=== PATIENT | male | born 1995 | race Caucasian/White ===

== ENCOUNTER 2018-06-26 16:32 | Emergency (ER) | payer OTHER ==
[2018-06-26] MEDS ORDERED: Diphtheria,Pertussis(Acell),Tetanus Vaccine 0.5 ML SDV IM ONE (16:45)
[2018-06-26] MEDS ORDERED: Lidocaine 1% 20 ML MDV INJECT ONE (16:46)
[2018-06-26] MEDS ORDERED: Bacitracin Oint 1 GM U/D Packet TOP ONE (16:47)
[2018-06-26] MEDS ORDERED: Levofloxacin/Dextrose 5%-Water 500 MG in Premix Bag 1 BAG IV ONE (17:38)
[2018-06-26] MEDS ORDERED: Sodium Chloride 0.9% 10 ML Syringe FLUSH PRN (17:38)
--- NOTE | 2018-06-26 17:38 | EDM.PDOC ---
ED HPI GENERAL MEDICAL PROBLEM - General Chief Complaint: Bite:Animal, Insect Stated Complaint: DOG ATTACK Time Seen by Provider: 06/26/18 17:31 Source of Information: Reports: Patient, Family History Limitations: Reports: No Limitations - History of Present Illness INITIAL COMMENTS - FREE TEXT/NARRATIVE: pt arrived with a incident where 2 dogs were fighting and the pt got atlrast 3- 4 puncture wounds to both arms. He had a laceration to the ear and a 1.5 inch flap was pulled down ont the ear. Onset: Today, Sudden Duration: Hour(s): Location: Reports: Face, Upper Extremity, Right, Lower Extremity, Left Associated Symptoms: Reports: No Other Symptoms - Related Data Allergies Allergy/AdvReac Type Severity Reaction Status Date / Time cefaclor [From Ceclor] Allergy Hives Verified 06/26/18 17:04 Penicillins Allergy Hives Verified 06/26/18 17:04 Home Meds: Home Meds NK [No Known Home Meds] 06/26/18 [History] Past Medical History - Past Health History Medical/Surgical History: Denies Medical/Surgical History Social & Family History - Tobacco Use Smoking Status *Q: Current Every Day Smoker Years of Tobacco use: 4 Packs/Tins Daily: 1 ED ROS GENERAL - Review of Systems Review Of Systems: See Below Constitutional: Reports: No Symptoms HEENT: Reports: No Symptoms, Other (pt has a laceration on the rt ear where the dog bite the ear. ) Respiratory: Reports: No Symptoms Cardiovascular: Reports: No Symptoms Endocrine: Reports: No Symptoms GI/Abdominal: Reports: No Symptoms : Reports: No Symptoms Musculoskeletal: Reports: No Symptoms Skin: Reports: No Symptoms ED EXAM, ANIMAL BITE - Physical Exam Exam: See Below Text/Narrative:: pt arrived after trying to break up a dog fight and the dog bite him multiple times ont eh forearms. He has a laceration on the rt ear. He has a 1.5 inch flap on the lower lobe of the ear. He has a 1/2 inch laceration on the upper lobe. The wounds were scrubbed well and bacatracin will be applied. Exam Limited By: No Limitations General Appearance: Alert, Moderate Distress Ears: Normal TMs, Other ( the pt has a 1.5 inch laceration flap type wound . She has a 1/4 inch laceration on the upper lobe. ) Nose: Normal Inspection Throat/Mouth: Normal Inspection Head: Atraumatic Neck: Normal Inspection Respiratory/Chest: No Respiratory Distress Cardiovascular: Regular Rate, Rhythm GI/Abdominal: Soft Neurological: Other (pt has 4 puncture wounds in both forearms. The one on the rt is 1/4 inch in length. The others are just puncture wounds. ) Course - Vital Signs Last Recorded V/S: Last Vital Signs Temp 35.8 C 06/26/18 17:11 Pulse 117 H 06/26/18 17:11 Resp 16 06/26/18 17:11 BP 119/68 06/26/18 17:11 Pulse Ox 93 L 06/26/18 17:11 - Orders/Labs/Meds Meds: Medications Discontinued Medications Generic Name Dose Route Start Last Admin Trade Name Freq PRN Reason Stop Dose Admin Bacitracin 1 dose 06/26/18 16:47 06/26/18 16:57 Bacitracin Oint 1 Gm TOP 06/26/18 16:48 1 dose ONETIME ONE Administration Diphtheria/Tetanus/Acell Pertussis 0.5 ml 06/26/18 16:45 06/26/18 16:57 Adacel IM 06/26/18 16:46 0.5 ml .ONCE ONE Administration Clindamycin Phosphate 300 mg/ 52 mls @ 150 mls/hr 06/26/18 17:38 06/26/18 17: 57 Sodium Chloride IV 06/26/18 17:58 150 mls/hr ONETIME ONE Administration Levofloxacin/Dextrose 500 mg/ 100 mls @ 100 mls/hr 06/26/18 17:38 06/26/18 17 :56 Premix IV 06/26/18 18:37 100 mls/hr ONETIME ONE Administration Lidocaine HCl 20 ml 06/26/18 16:46 06/26/18 16:57 Xylocaine 1% INJECT 06/26/18 16:47 20 ml ONETIME ONE Administration Oxycodone/Acetaminophen 1 tab 06/26/18 17:40 06/26/18 17:56 Percocet 325-5 Mg PO 06/26/18 17:41 1 tab ONETIME ONE Administration Sodium Chloride 10 ml 06/26/18 17:38 06/26/18 17:58 Saline Flush FLUSH 10 ml ASDIRECTED PRN Administration Keep Vein Open - Re-Assessments/Exams Free Text/Narrative Re-Assessment/Exam: 06/26/18 17:50 Pt had all wouinds cleaned well. The ear was irrigated and scrubbed. It was infiltrated with lidocaine. The flap type wound was brought together with chromic 5-0 and 6-0 proleme. . the upper wound on the ear was brought together with 5-0 prolene. all wounds had bacatracin applied. Departure - Departure Time of Disposition: 19:40 Disposition: Home, Self-Care 01 Condition: Fair Clinical Impression: Dog bite of ear, Dog bite of left forearm, Dog bite of right forearm - Discharge Information Instructions: Animal Bite, [id number] Referrals: PCP,None [Primary Care Provider] - Forms: ED Department Discharge Care Plan Goals: recheck in [address], possible suture removal from the ear, clindomyxin 300mg tid, levoquin 500mg daily, percocet 5/325 q6h prn for severe pain
[2018-06-26] MEDS ORDERED: Acetaminophen/oxyCODONE 325-5 MG Tab PO ONE (17:40)
== END 2018-06-26 19:39 | disposition home or self-care (01) ==
LOC: JP.ED 16:32
DX: S51.852A Open bite of left forearm, initial encounter (principal); S51.851A Open bite of right forearm, initial encounter; S01.351A Open bite of right ear, initial encounter; Z23 Encounter for immunization; F17.210 Nicotine dependence, cigarettes, uncomplicated; W54.0XXA Bitten by dog, initial encounter
CPT/HCPCS: 12014; 90471; 90715; 96365; 96367; 99283; A9270; J1956; J7050; S0077

== ENCOUNTER 2019-08-28 12:26 | Emergency (ER) | payer SELFPAY ==
--- NOTE | 2019-08-28 14:04 | EDM.PDOC ---
ED HPI GENERAL MEDICAL PROBLEM - General Chief Complaint: Lower Extremity Injury/Pain Stated Complaint: LEFT ANKLE INJURY/PAIN Time Seen by Provider: 08/28/19 14:04 Source of Information: Reports: Patient History Limitations: Reports: No Limitations - History of Present Illness INITIAL COMMENTS - FREE TEXT/NARRATIVE: pt came down off of a ladder about 7 feet. He got his left foot caught in the ladder He had swelling in the lateral aspect of the ankle. This was very tender. Onset: Today, Sudden Duration: Hour(s): Location: Reports: Lower Extremity, Left Associated Symptoms: Reports: No Other Symptoms Left Ankle Pain Score (Numeric/FACES): 8 - Related Data Allergies Allergy/AdvReac Type Severity Reaction Status Date / Time cefaclor [From Ceclor] Allergy Hives Verified 08/28/19 13:55 Penicillins Allergy Hives Verified 08/28/19 13:55 Home Meds: Home Meds NK [No Known Home Meds] 06/26/18 [History] Past Medical History - Past Health History Medical/Surgical History: Denies Medical/Surgical History Musculoskeletal History: Reports: Fracture - Past Surgical History HEENT Surgical History: Reports: Other (See Below) Other HEENT Surgeries/Procedures: cyst on neck removed as a child. Musculoskeletal Surgical History: Reports: Other (See Below) Other Musculoskeletal Surgeries/Procedures:: elbow fracture repair. Social & Family History - Tobacco Use Smoking Status *Q: Heavy Tobacco Smoker Years of Tobacco use: 3 Packs/Tins Daily: 1 - Recreational Drug Use Recreational Drug Use: No Review of Systems - Review of Systems Review Of Systems: See Below Constitutional: Reports: No Symptoms Eyes: Reports: No Symptoms Ears: Reports: No Symptoms Nose: Reports: No Symptoms Mouth/Throat: Reports: No Symptoms Respiratory: Reports: No Symptoms Cardiovascular: Reports: No Symptoms GI/Abdominal: Reports: No Symptoms Genitourinary: Reports: No Symptoms Musculoskeletal: Reports: Other ( severe pain in the left ankle and foot. ) ED EXAM, GENERAL - Physical Exam Exam: See Below Free Text/Narrative:: pt arrived after falling off of a ladder about 7 feet. He twisted his ankle and has swelling laterally. Exam Limited By: No Limitations General Appearance: Alert, Moderate Distress, Other (pupils equal and reactive. ) Ears: Normal TMs Nose: Normal Inspection Throat/Mouth: Normal Inspection Head: Atraumatic Neck: Normal Inspection Respiratory/Chest: No Respiratory Distress Cardiovascular: Regular Rate, Rhythm GI/Abdominal: Soft, Non-Tender (Male) Exam: Deferred Rectal (Males) Exam: Deferred Back Exam: Normal Inspection Extremities: Other (pt has marked tenderness on the lateral aspect of the ankle. He is very tender. ) Neurological: Alert, Oriented, Normal Cognition Course - Vital Signs Last Recorded V/S: Last Vital Signs Temp 36.6 C 08/28/19 13:53 Pulse 73 08/28/19 13:53 Resp 16 08/28/19 13:53 BP 106/37 L 08/28/19 13:53 Pulse Ox 98 08/28/19 13:53 Departure - Departure Time of Disposition: 15:58 Disposition: Home, Self-Care 01 Condition: Fair Clinical Impression: Left ankle sprain - Discharge Information Instructions: Ankle Sprain, [id number] Referrals: PCP,None [Primary Care Provider] - Forms: ED Department Discharge Care Plan Goals: elevate foot,cam walker , crutches, motrin 600mg tid ,#8, - norco 5/325 q6h prn for pain, ortho referal next Tuesday.
--- NOTE | 2019-08-28 14:41 | CRLCR ---
Indication: Left ankle pain after fall from a ladder. Technique: Left ankle 3 views. Comparison: None. Findings: No acute fracture or dislocation. Ankle mortise is intact. Tiny Achilles calcaneal spur. Os trigonum. Soft tissue swelling about the ankle. Impression: 1. No acute fracture or dislocation. 2. Soft tissue swelling about the ankle. Dictated by Clara Wolfe MD @ Aug 28 2019 2:36PM Signed by Dr. Clara Wolfe @ Aug 28 2019 2:39PM
--- NOTE | 2019-08-28 14:45 | CRLCR ---
Indication: Left foot and ankle pain after fall from a ladder. Technique: Left foot 3 views Comparison: None. Findings: No acute fracture or dislocation. Joint spaces are well preserved. Tiny Achilles calcaneal spur. Os trigonum. Soft tissue swelling about the ankle. Impression: 1. No acute fracture or dislocation. 2. Soft tissue swelling about the ankle. Dictated by Clara Wolfe MD @ Aug 28 2019 2:40PM Signed by Dr. Clara Wolfe @ Aug 28 2019 2:43PM
== END 2019-08-28 16:14 | disposition home or self-care (01) ==
LOC: JP.ED 12:26
DX: S93.402A Sprain of unspecified ligament of left ankle, initial encounter (principal); F17.210 Nicotine dependence, cigarettes, uncomplicated; Z88.0 Allergy status to penicillin; Z88.1 Allergy status to other antibiotic agents; W11.XXXA Fall on and from ladder, initial encounter
CPT/HCPCS: 73610-LT; 73630-LT; 99283; 99283-25